=== PATIENT | male | born 1960 | race Caucasian/White ===

== ENCOUNTER → 2018-03-11 | Outpatient (CLI) | payer MEDICARE ==
[~2018-03-11] MED LIST: ALPR-451 PO; CYAN100088 PO; DICL100G39; GABA-547 PO; LAMO200T46 PO; OXYC10TA67 PO
[2018-03-11 16:00] LABS: PLATELET COUNT, AUTOMATED 310 K/uL (150-450)
== END ==
LOC: LAB 15:31
PROVIDERS: ATTEND Internal Medicine
DX: F31.9 Bipolar disorder, unspecified (principal); E34.9 Endocrine disorder, unspecified; M19.90 Unspecified osteoarthritis, unspecified site
CPT/HCPCS: 82607; 82746; 84402; 84403; 84443; 85025; G0103; 82040; 82247; 82310; 82374; 82435; 82565; 82947; 84075; 84132; 84153; 84155; 84295; 84450; 84460; 84520

== ENCOUNTER → 2018-03-16 | Outpatient (CLI) | payer MEDICARE | LOC: LAB 07:19 | PROVIDERS: ATTEND Internal Medicine | DX: Z02.9 Encounter for administrative examinations, unspecified (principal) ==

== ENCOUNTER 2018-10-26 08:35 | Emergency (ER) | payer MEDICARE ==
[~2018-10-26 08:35] MED LIST changes: +AMOX500T10 PO; +FLUT15.88 NS; +GABA-549 PO; +HYDR-653 PO; +LOR5/325 PO; +ONDA4TAB9 PO; +TEST200V IM; +TIZA-128 PO
--- NOTE | 2018-10-26 08:37 | ER Report ---
History and Physical Time Seen By MD: 08:37 HPI/ROS CHIEF COMPLAINT: Pain in the posterior oropharynx HISTORY OF PRESENT ILLNESS: Patient is a 57-year-old male here with complaints of postoperative pain from a uvulectomy. Patient reportedly had the procedure done on Sunday with Dr. Serna here. Patient complains of significant pain, difficulty swallowing, reports of a white plaque-like substance in the posterior oropharynx. Patient is afebrile, hemodynamically stable at time of evaluation. REVIEW OF SYSTEMS: Constitutional: No fever, no chills. Eyes: No discharge. ENT: + sore throat, pain in the posterior oropharynx, postoperative pain, no erythema or drainage Cardiovascular: No chest pain, no palpitations. Respiratory: No cough, no shortness of breath. Gastrointestinal: No abdominal pain, no vomiting. Genitourinary: No hematuria. Musculoskeletal: No back pain. Skin: No rashes. Neurological: No headache. Allergies: Coded Allergies: demeclocycline (Verified Allergy, Unknown, 10/26/18) Home Meds Active Scripts Amoxicillin 500 Mg Tab (AMOXICILLIN 500 MG TAB) 500 Mg Tablet, 1 TAB PO Q8H for 7 Days, #21 TAB Prov:VISH SERNA JR, MD 10/22/18 Reported Medications Ibuprofen (IBUPROFEN) 200 Mg Capsule, 1 CAP PO Q6H, CAPSULE 10/26/18 Testosterone Cypionate (TESTOSTERONE CYPIONATE) 200 Mg/1 Ml Vial, 200 MG IM every two weeks, VIAL 09/20/18 Fluticasone Propionate (Fluticasone Propionate) 50 Mcg/Actuation [place].susp, 2 SPRAYS NS BID 09/20/18 Lamotrigine (LAMICTAL) 200 Mg Tablet, 200 MG PO QDAY 03/11/18 Discontinued Scripts Hydrocodone Bit/Acetaminophen (NORCO 5-325 TABLET) 1 Each Tablet, 1 EACH PO Q6H PRN for PAIN for 3 Days, #10 TAB Prov:VISH SERNA JR, MD 10/22/18 Smoking Status: Former Smoker Constitutional Vital Sign - Last 24 Hours 10/26/18 08:41 Temp 97.9 Pulse 72 Resp 16 B/P (MAP) 148/80 Pulse Ox 94 O2 Delivery Room Air Physical Exam General Appearance: The patient is alert, has no immediate need for airway protection and no signs of toxicity. Uncomfortable appearing Eyes: Pupils equal and round no pallor or injection. ENT, Mouth: Mucous membranes are moist, white plaque present in the posterior oropharynx, no erythema or purulent drainage visual Respiratory: There are no retractions, lungs are clear to auscultation. Cardiovascular: Regular rate and rhythm. Gastrointestinal: Abdomen is soft and non tender, no masses, bowel sounds normal. Neurological: No focal neurological deficits, cranial nerves intact Skin: Warm and dry, no rashes. Musculoskeletal: Neck is supple non tender. Extremities are nontender, nonswollen and have full range of motion. DIFFERENTIAL DIAGNOSIS: After history and physical exam differential diagnosis was considered for oral candidiasis, esophagitis, postoperative pain Medical Decision Making ED Course/Re-evaluation ED Course Patient is a 57-year-old male here status post uvulectomy on Sunday. There is mild edema surrounding the postoperative site, white plaque-like substance. Yadiel shepherd is being treated with amoxicillin currently. Patient was given clotrimazole torch, lidocaine/Benadryl swish and swallow, Solu-Medrol. Patient was given 3 subsequent days of prednisone, tramadol, clotrimazole torch. Patient is hemodynamically stable at time of discharge. Return precautions were provided. Decision to Disposition Date: Oct 26, 2018 Decision to Disposition Time: 09:39 Depart Departure Latest Vital Signs Vital Signs Date Time Temp Pulse Resp B/P (MAP) Pulse Ox O2 Delivery O2 Flow Rate FiO2 10/26/18 08:41 97.9 72 16 148/80 94 Room Air Impression: Primary Impression: Post-op pain Condition: Improved Disposition: HOME OR SELF-CARE Referrals: CIERA HOWELL MD (PCP) New Scripts Prednisone (PREDNISONE) 50 Mg Tablet 50 MG PO QDAY for 3 Days, #3 TAB Prov: SAMANTHA FRANKLIN DO 10/26/18 Tramadol Hcl (TRAMADOL HCL) 50 Mg Tablet 50 MG PO Q6H PRN for PAIN, #12 TAB 0 Refills Prov: SAMANTHA FRANKLIN DO 10/26/18 Clotrimazole (CLOTRIMAZOLE) 10 Mg Troc 10 MG MT 5XD PRN for PAIN, #30 TAB Prov: SAMANTHA FRANKLIN DO 10/26/18 Patient Instructions: Pain Management After Surgery (DC) Additional Instructions: Please take prednisone 1 tablet daily for the next 3 days. Please take tramadol 1 tablet every 6-8 hours as needed for pain control. Please use clotrimazole torches 1 torch 5 times daily as needed for pain control. Please follow-up with your ENT surgeon as needed. Please return promptly if you develop difficulty swallowing, worsening pain, fevers, headaches. SAMANTHA FRANKLIN DO Oct 26, 2018 08:37
[2018-10-26 08:41] VITALS: BP 148/80
[2018-10-26] MEDS ORDERED: IBUP-136 PO (08:57)
[2018-10-26] MEDS ORDERED: methylPREDNIS SUCC 125 MG/2ML IVP ONE (09:05)
[2018-10-26] MEDS ORDERED: NS(*) 0.9% 1000 ML BAG 1,000 ML IV ONE (09:05)
[2018-10-26] MEDS ORDERED: CLOTRIMAZOLE 10 MG TROCHE PO ONE (09:05)
[2018-10-26] MEDS ORDERED: LIDOCAINE 2% VISC SLN 15ML UDC PO ONE (09:05)
[2018-10-26] MEDS ORDERED: KETOROLAC 30 MG/ML VIAL IVP ONE (09:10)
[2018-10-26] MEDS ORDERED: CLO10 MT (09:42)
[2018-10-26] MEDS ORDERED: TRAM-420 PO (09:42)
[2018-10-26] MEDS ORDERED: PRED50TA22 PO (09:42)
[2018-10-29] MEDS ORDERED: LIDO15SO2 PO (16:09)
[2018-10-29] MEDS ORDERED: TRAM-420 PO (17:12)
[2018-10-29] MEDS ORDERED: LOR5/325 PO (17:12)
== END 2018-10-26 09:57 | disposition home or self-care (01) ==
LOC: ER 09:04
DX: R07.0 Pain in throat (principal); G89.18 Other acute postprocedural pain
CPT/HCPCS: 96374; 96375; 99284; A9270; J1885; J2930; J7030; Q0163

== ENCOUNTER → 2018-11-26 | Outpatient (CLI) | payer MEDICARE ==
[~2018-11-26] MED LIST changes: +CEFPR500PT PO; +CEFU500T10 PO; +CLO10 MT; +IBUP-136 PO; +LIDO15SO2 PO; +OMEP-126 PO; +PRED50TA22 PO; +SULF-198 PO; +TRAM-420 PO; +TRAM-627 PO
--- NOTE | 2018-11-26 16:09 | RADIOLOGY IMAGING REPORT ---
FACILITY: [facility] PATIENT NAME: Henrik Lam : 1960 MR: [id number] V: [id number] EXAM DATE: ORDERING PHYSICIAN: BRENDAN JOY TECHNOLOGIST: Location: [facility] Patient: Henrik Lam : 1960 Visit/Account:[id number] Date of Sevice: 11/26/2018 r chest 2 views: HISTORY: Chronic cough, shortness of breath x2 weeks COMPARISON: None. FINDINGS: Frontal and lateral chest: Cardiomediastinal silhouette is within normal limits. There is no infiltrate or pleural effusion. No pneumothorax. Pulmonary vasculature is normal. Mild degenerative changes are present in the thoracic spine. IMPRESSION: No evidence of acute cardiopulmonary abnormality. Report Dictated By: Michelle Villanueva MD at 11/26/2018 4:02 PM Report E-Signed By: Michelle Villanueva MD at 11/26/2018 4:03 PM WSN:[id number]
== END ==
LOC: RAD 15:11
PROVIDERS: ATTEND Physician Assistant
DX: R05 Cough (principal)
CPT/HCPCS: 71046

== ENCOUNTER 2018-11-30 01:43 | Emergency (ER) | payer MEDICARE ==
--- NOTE | 2018-11-30 01:54 | ER Report ---
History and Physical Time Seen By MD: 01:52 Hx. of Stated Complaint: PT HAS HAD FEVER TYPE SYMPTOMS THAT STARTED YESTERDAY. PT HAS BEEN OVERLY TIRED/EXHAUSTED. HPI/ROS CHIEF COMPLAINT: Fever HISTORY OF PRESENT ILLNESS: This is a 57 year old male. He has been feeling poorly for a few weeks. Recently had uvulectomy. Was on Clindamycin, finished this medicine, and started on Bactrim, first dose yesterday. He feels like he has had fevers starting yesterday, extending though tonight. [employer] tired and exhausted. Not eating much and very poor fluid intake today. Normally drinks about a gallon of water each day and only a few ounces today. Feeling dizzy with standing and sitting up. Has been having fevers. Some confusion tonight. Denies abdominal pain. No diarrhea or changes in bowels. No dysuria or frequency. No cough, but at times feels short of breath. Throat still sore, but has been getting better. No ear pain. No chest pain or pain with breathing. No flank pain. Denies headache or neck or back pain. Allergies: Coded Allergies: demeclocycline (Verified Allergy, Unknown, 11/30/18) Home Meds Active Scripts Ondansetron 4 Mg Odt (ONDANSETRON 4 MG ODT) 4 Mg Tab.rapdis, 4 MG PO ONCE PRN for NAUSEA/VOMITING, #20 TAB 0 Refills Prov:ELADIO EARL MD 11/30/18 Hydrocodone Bit/Acetaminophen (HYDROCODON-ACETAMINOPHEN 5-325) 1 Each Tablet, 1 EACH PO Q4H PRN for PAIN, #12 TAB 0 Refills Prov:ELADIO EARL MD 11/30/18 Omeprazole (OMEPRAZOLE) 20 Mg Capsule.dr, 1 CAP PO BID for 30 Days, #60 CAP 1 Refill Take first thing in am and 1/2 hour before supper Prov:BRENDAN JOY PA-C 11/26/18 Sulfamethoxazole/Trimet 800-160 Mg Tab (BACTRIM DS TABLET) 1 Each Tablet, 1 TAB PO Q12H for 10 Days, #20 TAB 0 Refills Prov:BRENDAN JOY PA-C 11/26/18 Tramadol Hcl (ULTRAM) 50 Mg Tablet, 50 MG PO Q4-6H, #10 TAB 0 Refills Prov:RUFINOLAMAR ADAMEBEBO Kathleen PA-C 11/11/18 Hydrocodone Bit/Acetaminophen (HYDROCODON-ACETAMINOPHEN 5-325) 1 Each Tablet, 1 EACH PO Q4-6H PRN for PAIN MDD 4 for 4 Days, #10 TAB 0 Refills Prov:RUFINOBRENDAN PA-C 10/29/18 Lidocaine HCl VISCOUS 2% (Lidocaine Viscous) 2 % Solution, 15 ML PO Q2H PRN for PAIN for 5 Days, #450 ML Prov:RUFINO,BRENDANBEBO Kathleen PA-C 10/29/18 Clotrimazole (CLOTRIMAZOLE) 10 Mg Troc, 10 MG MT 5XD PRN for PAIN, #30 TAB Prov:SAMANTHA FRANKLIN DO 10/26/18 Reported Medications Ibuprofen (IBUPROFEN) 200 Mg Capsule, 1 CAP PO Q6H, CAPSULE 10/26/18 Testosterone Cypionate (TESTOSTERONE CYPIONATE) 200 Mg/1 Ml Vial, 200 MG IM every two weeks, VIAL 09/20/18 Fluticasone Propionate (Fluticasone Propionate) 50 Mcg/Actuation [place].susp, 2 SPRAYS NS BID 09/20/18 Lamotrigine (LAMICTAL) 200 Mg Tablet, 200 MG PO QDAY 03/11/18 Reviewed Nurses Notes: Yes Smoking Status: Former Smoker Constitutional Vital Sign - Last 24 Hours 11/30/18 11/30/18 11/30/18 11/30/18 01:47 01:49 01:58 02:00 Temp 101.7 Pulse 111 109 Resp 24 B/P (MAP) 153/91 153/91 (111) 141/95 (110) Pulse Ox 91 91 O2 Delivery Room Air 11/30/18 11/30/18 11/30/18 11/30/18 02:13 02:28 02:30 02:43 Pulse 107 109 112 B/P (MAP) 134/92 (106) Pulse Ox 92 92 90 11/30/18 11/30/18 11/30/18 11/30/18 02:58 03:10 03:12 03:13 Pulse 110 99 B/P (MAP) 136/86 (103) 136/86 (103) 136/85 (102) 136/92 (107) Pulse Ox 87 90 11/30/18 11/30/18 11/30/1813/19 03:28 03:30 04:30 04:35 Pulse 104 105 106 105 B/P (MAP) 147/80 (102) 121/87 (98) Pulse Ox 90 94 90 86 11/30/18 11/30/18 04:50 05:00 Pulse 107 B/P (MAP) 131/102 (112) Pulse Ox 87 Intake and Output 0 11/29/18 11/29/18 11/30/18 15:02 23:02 07:02 Intake Total 2000 ml Balance 2000 ml Physical Exam General Appearance: The patient is alert. No acute distress. Eyes: Pupils are equal, round. Reactive to light. No pallor, injection or icterus. Extraocular movements are intact. ENT: Mucous membranes are moist. Normal oral mucosa. Posterior oropharynx with healing, some redness diffufsely. Normal nasal mucosa. Normal tympanic membranes and canals. Neck: Supple and non tender. No lymphadenopathy. Respiratory: Lungs are clear to auscultation. There are no retractions or accessory muscle use. Cardiovascular: Regular rate and rhythm. No murmurs, gallops or rubs. Normal capillary refill. No edema. Gastrointestinal: Abdomen is soft and non tender. Nondistended. Normal active bowel sounds. No costovertebral angle tenderness with percussion. Neurological: Alert and oriented x3. Generalized weakness. Dizziness with sitting up. No focal neurologic deficits in the extremities. Skin: Warm and dry. No rashes. Musculoskeletal: Extremities are nontender. Full range of motion. No tenderness in palpation of the cervical, thoracic and lumbar spine. DIFFERENTIAL DIAGNOSIS: After history and physical exam, differential diagnosis was considered for patient with fever, uncertain etiology, also with signs of dehydration. He has been having nausea without vomiting. Recent with uvulectomy and just finished clindamycin and is on Bactrim. Medical Decision Making Data Points Result Diagram: 11/30/1821111/30/18211 Laboratory Hematology Test 11/30/18 02:12 White Blood Count 16.2 k/uL (4.5-11.0) H Red Blood Count 4.73 M/uL (4.00-5.60) Hemoglobin 14.8 g/dL (14.0-18.0) Hematocrit 42.1 % (42.0-52.0) Mean Corpuscular Volume 89.0 fL (80.0-96.0) Mean Corpuscular Hemoglobin 31.2 pg (26.0-33.0) Mean Corpuscular Hemoglobin Concent 35.1 g/dL (32.0-36.0) Red Cell Distribution Width 13.4 % (11.5-14.5) Platelet Count 316 K/uL (150-450) Mean Platelet Volume 8.6 fL (7.2-11.1) Neutrophils (%) (Auto) 86.9 % (39.4-72.5) H Lymphocytes (%) (Auto) 7.2 % (17.6-49.6) L Monocytes (%) (Auto) 4.8 % (4.1-12.4) Eosinophils (%) (Auto) 0.7 % (0.4-6.7) Basophils (%) (Auto) 0.4 % (0.3-1.4) Nucleated RBC Relative Count (auto) 0.0 /100WBC Neutrophils # (Auto) 14.1 K/uL (2.0-7.4) H Lymphocytes # (Auto) 1.2 K/uL (1.3-3.6) L Monocytes # (Auto) 0.8 K/uL (0.3-1.0) Eosinophils # (Auto) 0.1 K/uL (0.0-0.5) Basophils # (Auto) 0.1 K/uL (0.0-0.1) Nucleated RBC Absolute Count (auto) 0.00 K/uL Chemistry Test 11/30/18 02:12 Sodium Level 140 mmol/L (137-145) Potassium Level 3.9 mmol/L (3.5-5.0) Chloride Level 108 mmol/L (98-107) Carbon Dioxide Level 20 mmol/L (22-30) Blood Urea Nitrogen 20 mg/dl (9-21) Creatinine 1.00 mg/dl (0.66-1.25) Glomerular Filtration Rate Calc > 60.0 Random Glucose 131 mg/dl (75-110) Lactate 1.7 mmol/L (0.7-2.1) Calcium Level 9.6 mg/dl (8.4-10.2) Total Bilirubin 0.6 mg/dl (0.2-1.3) Aspartate Amino Transf (AST/SGOT) 25 U/L (0-35) Alanine Aminotransferase (ALT/SGPT) 51 U/L (0-56) Alkaline Phosphatase 90 U/L (0-126) Total Protein 7.1 g/dl (6.3-8.2) Albumin 4.2 g/dl (3.5-5.0) Serology Test 11/30/18 02:02 Group A Streptococcus (PCR) Negative (NEGATIVE) Urinalysis Test 11/30/18 01:50 Urine Color Straw Urine Clarity Clear Urine pH 5.0 pH (4.8-9.5) Urine Specific [place] 1.014 Urine Protein Negative mg/dL (NEGATIVE) Urine Glucose (UA) Negative mg/dL (NEGATIVE) Urine Ketones Negative mg/dL (NEGATIVE) Urine Blood Negative (NEGATIVE) Urine Nitrite Negative (NEGATIVE) Urine Bilirubin Negative (NEGATIVE) Urine Urobilinogen Negative mg/dL (0.2-1.9) Urine Leukocyte Esterase Negative (NEGATIVE) Urine RBC None /HPF (0-2/HPF) Urine WBC <1 /HPF (0-5/HPF) Urine Squamous Epithelial Cells None /LPF (</=FEW) Urine Bacteria Negative /HPF (NONE-FEW) Urine Mucus None /HPF (NONE-FEW) EKG/Imaging Imaging EXAMINATION: Portable AP Chest 11/30/2018 2:06 AM HISTORY: fever COMPARISON: 11/26/2018 FINDINGS: Cardiomediastinal contours: Normal Lungs and pleura: Normal Bones/soft tissues: Bony degenerative changes. IMPRESSION: Unremarkable portable chest. Report Dictated By: Diaz Wilson MD at 11/30/2018 3:28 AM ED Course/Re-evaluation Clinical Indication for ER IV: Hydration, IV Access ED Course The patient did have an elevated white blood cell count when labs were obtained. He is a little dehydrated with a BUN of 20 and a creatinine of 1.00. Chest x-ray is negative for any acute abnormality. He did feel better after fluids but did not have any changes on orthostatic vital signs. Initially given some Zofran to help with the vomiting. Later was given ibuprofen and morphine to help with pain. This did help his pain. Does have a mild headache but no signs of meningismus. Unable to find source for the fever. He has been on clindamycin and is now on a new prescription for Bactrim. I discussed with them the possibility of having a postoperative abscess or something like this in the soft tissue of his neck causing the fever. He is having diffuse achiness as well and could be a viral source. I think less likely this could be meningitis but again this would be less likely on the list. We did talk about transferring to do a CT scan since our CT scan here at the hospital is not operative at this time. He indicated that he definitely did not want to do this but understands the reasoning behind this. He also did not want to proceed with a lumbar puncture at this time. I discussed with he and his that he can come back in and be reevaluated should he be worsening or not improving. They would like to return home at this time and try continuing with the Bactrim as well as using some pain medicine and nausea medicine to help with symptoms and continue working at improved hydration over the next 24 hours and see how he does. Decision to Disposition Date: Nov 30, 2018 Decision to Disposition Time: 05:11 Depart Departure Latest Vital Signs Vital Signs Date Time Temp Pulse Resp B/P (MAP) Pulse Ox O2 Delivery O2 Flow Rate FiO2 11/30/18 05:00 131/102 (112) 11/30/18 04:50 107 87 11/30/18 01:47 101.7 24 Room Air Impression: Primary Impression: Fever Additional Impression: Dehydration Condition: Improved Disposition: HOME OR SELF-CARE Referrals: CIERA HOWELL MD (PCP) New Scripts Ondansetron 4 Mg Odt (ONDANSETRON 4 MG ODT) 4 Mg Tab.rapdis 4 MG PO ONCE PRN for NAUSEA/VOMITING, #20 TAB 0 Refills Prov: ELADIO EARL MD 11/30/18 Hydrocodone Bit/Acetaminophen (HYDROCODON-ACETAMINOPHEN 5-325) 1 Each Tablet 1 EACH PO Q4H PRN for PAIN, #12 TAB 0 Refills Prov: ELADIO EARL MD 11/30/18 Patient Instructions: Fever in Adults (ED) Additional Instructions: We did not find a cause for your fever tonight. At this time we are going have you keep taking the new antibiotic that your doctor just started (Bactrim DS twice a day). Take Lortab 5/325, one every 4 hours as needed for pain. Ibuprofen 200mg over the counter tablets, 4 tablets every 8 hours for pain. Zofran 4mg, one every 6 hours as needed for nausea. Rest and increase fluid intake. Return to the ER for worsening symptoms. As we discussed, the next step would be to do a CT scan of the neck, looking for post-surgical infection or abscess. CT scan is not working at this time; we are not sure when it will be available. The next nearest scans would be in [place] at [facility] or in [place] at [facility]. As we discussed, we can help arrange transfer there for further evaluation if you change your mind. The other thing we discussed was doing a lumbar puncture to look for Meningitis. We feel based on your exam that this would be less likely, but would need to be considered if you are not getting better, and we can always re-evaluate and do this if you are worsening or change you mind and would like to have this done. Problem Qualifiers Primary Impression: Fever Fever type: unspecified Qualified Codes: R50.9 - Fever, unspecified ELADIO EARL MD Nov 30, 2018 01:54
[2018-11-30] MEDS ORDERED: ONDANSETRON 4 MG/2 ML VIAL IVP ONE (02:10)
[2018-11-30] MEDS ORDERED: NS(*) 0.9% 1000 ML BAG 1,000 ML IV ONE ×2 (02:10)
[2018-11-30 02:42] LABS: PLATELET COUNT, AUTOMATED 316 K/uL (150-450)
--- NOTE | 2018-11-30 03:36 | RADIOLOGY IMAGING REPORT ---
[place] [facility] [place] NAME: Henrik Lam : 1960 MR: [id number] V: [id number] EXAM DATE: ORDERING PHYSICIAN: ELADIO EARL TECHNOLOGIST: Location: [facility] [place] Patient: Henrik Lam : 1960 Visit/Account:[id number] Date of Sevice: 11/30/2018 EXAMINATION: Portable AP Chest 11/30/2018 2:06 AM HISTORY: fever COMPARISON: 11/26/2018 FINDINGS: Cardiomediastinal contours: Normal Lungs and pleura: Normal Bones/soft tissues: Bony degenerative changes. IMPRESSION: Unremarkable portable chest. Report Dictated By: Diaz Wilson MD at 11/30/2018 3:28 AM Report E-Signed By: Diaz Wilson MD at 11/30/2018 3:30 AM WSN:[id number]
[2018-11-30] MEDS ORDERED: IBUPROFEN 800 MG TAB PO ONE (04:10)
[2018-11-30] MEDS ORDERED: MORPHINE 4 MG/ML SDV IVP ONE (04:25)
[2018-11-30 05:00] VITALS: BP 131/102
[2018-11-30] MEDS ORDERED: ONDA4TAB9 PO (05:15)
[2018-11-30] MEDS ORDERED: LOR5/325 PO (05:15)
[2018-11-30] MEDS ORDERED: ACET/HYDROC 5/325MG TH ER ONLY 2 TAB/BOTTLE PO ONE (05:25)
[2018-11-30] MEDS ORDERED: ONDANSETRON 4 MG ODT TH SL ONE (05:25)
[2018-11-30] MEDS ORDERED: AMOX-559 PO (18:21)
[2018-11-30] MEDS ORDERED: AMOX/CLAV 875 MG TAB PO ONE (19:10)
== END 2018-11-30 05:55 | disposition home or self-care (01) ==
LOC: ER 02:00
DX: E86.0 Dehydration (principal); R50.9 Fever, unspecified
CPT/HCPCS: 36415; 71045; 81001; 83605; 85025; 87040; 87088; 87653; 96361; 96374; 96375; 99284; A9270; J2270; J2405; J7030; Q0162; 82040; 82247; 82310; 82374; 82435; 82565; 82947; 84075; 84132; 84155; 84295; 84450; 84460; 84520; S0119